=== PATIENT | male | born 1950 | race African-American/Black ===

== ENCOUNTER 2022-10-25 10:17 | Inpatient (IN) | payer BC, OTHER ==
[~2022-10-25] VITALS: Ht 172.7 cm; Wt 62.4 kg
[2022-10-25] VITALS (9 sets, daily range): BP systolic 122–130; BP diastolic 70–99
--- NOTE | 2022-10-25 07:30 | NUR ---
Bedside verbal endorsement given by day RN Sofya. Pt. awake in bed flat affect. Blank expression Malagasy speaking only. Bed in low position with 2 SR up. Pt. currently has insulin gtts going at 3.81 ml/hr. per drip sliding scale protocol. Rocephin gttts. not started by day nurse secondary to new order at shift end. Charge nurse will rectify. complete inital assessment rendered . See flowsheet for details. Pt. monitored for acute changes in clinical assessment, s/s hypoglycemia and unstable vital signs.
--- NOTE | 2022-10-25 10:20 | NUR ---
DR MARTINEZ AT BEDSIDE
[2022-10-25] MEDS ORDERED: IV NS 0.9% 1,000 ML BAG IV ONE (10:30)
[2022-10-25] MEDS ORDERED: INSU100I26 SQ (10:41)
[2022-10-25] MEDS ORDERED: SENN-261 PO (10:41)
[2022-10-25] MEDS ORDERED: INSU100I34 SQ (10:41)
[2022-10-25] MEDS ORDERED: CHOL200059 PO (10:41)
[2022-10-25] MEDS ORDERED: ATOR40TA PO (10:41)
[2022-10-25 11:08] LABS: BASOPHILS % (AUTO) 0.2 % (0.0-2.0); HEMATOCRIT 53 % (39-51); HEMOGLOBIN 16.7 g/dL (13.5-17.5); LYMPHOCYTES # (AUTO) 0.4 K/uL (0.8-4.8); LYMPHOCYTES % (AUTO) 3.2 % (20.0-44.0); MEAN CORPUSCULAR HGB CONC 32 g/dl (31.0-36.0); MEAN CORPUSCULAR VOLUME 92 fL (80-96); MONOCYTES # (AUTO) 0.7 K/uL (0.1-1.30); MONOCYTES % (AUTO) 5.1 % (2.0-12.0); NEUTROPHILS # (AUTO) 12.4 K/uL (1.8-8.9); NEUTROPHILS % (AUTO) 91.5 % (43.0-81.0); PLATELET COUNT (AUTO) 293 K/uL (150-450); RED BLOOD CELL COUNT(AUTO) 5.74 MIL/uL (4.5-6.0); WHITE BLOOD COUNT (AUTO) 13.5 K/uL (4.3-11.0)
--- NOTE | 2022-10-25 11:29 | NUR ---
covid swab taken
[2022-10-25 11:30] LABS: ALANINE AMINOTRANSFERASE 42 U/L (12-78); ALBUMIN 3.9 g/dL (3.4-5.0); ALKALINE PHOSPHATASE 130 U/L (46-116); ASPARTATE AMINOTRANSFERASE 11 U/L (15-37); BILIRUBIN,DIRECT 0.1 mg/dL (0.0-0.2); BILIRUBIN,TOTAL 0.7 mg/dL (0.2-1.0); CALCIUM, SERUM 10.7 mg/dL (8.5-10.1); CHLORIDE 101 mmol/L (98-107); CREATININE 1.6 mg/dL (0.6-1.3); POTASSIUM 4.9 mmol/L (3.5-5.1); SODIUM SERUM 140 mmol/L (136-145); TOTAL PROTEIN, SERUM 8.2 g/dL (6.4-8.2); UREA NITROGEN, BLOOD 31 mg/dL (7-18)
[2022-10-25 11:32] LABS: THYROID STIMULATING HORMONE 0.765 uIU/mL (0.358-3.74)
--- NOTE | 2022-10-25 11:35 | NUR ---
MOVE SHEET SUBMITTED.
[2022-10-25 11:46] LABS: ALCOHOL, BLOOD < 3 mg/dL (0-0); CARBON DIOXIDE 8 mmol/L (21-32); GLUCOSE 565 mg/dL (74-106)
--- NOTE | 2022-10-25 12:36 | NUR ---
ROOM [facility]
[2022-10-25] MEDS ORDERED: INSULIN REGULAR, HUMAN 100 UNITS in IV NS 0.9% 100 ML IV PRN ×2 (13:00)
[2022-10-25] MEDS ORDERED: IV NS 0.9% 1,000 ML IV PRN (13:00)
[2022-10-25] MEDS ORDERED: ACETAMINOPHEN 325 MG TABLET PO PRN (13:30)
[2022-10-25] MEDS ORDERED: ONDANSETRON HCL/PF 4 MG/2 ML VIAL IVP PRN (13:30)
[2022-10-25] MEDS ORDERED: SODIUM BICARBONATE SYR 50 MEQ/50 ML DISP.SYRIN IV ONE ×2 (13:30→16:00)
[2022-10-25] MEDS ORDERED: INSULIN REGULAR, HUMAN 100 UNIT in IV NS 0.9% 99 ML IV PRN ×2 (13:30)
[2022-10-25] MEDS ORDERED: MAGNESIUM HYDROXIDE 30 ML UDC PO PRN (13:30)
[2022-10-25] MEDS ORDERED: DEXTROSE 50%-WATER 50 ML DISP.SYRIN IV PRN (13:30)
[2022-10-25] MEDS ORDERED: ZOLPIDEM TARTRATE 5 MG TABLET PO PRN (13:30)
[2022-10-25] MEDS ORDERED: MAG HYDROX/AL HYDROX/SIMETH 30 ML UDC PO PRN (13:30)
[2022-10-25] MEDS ORDERED: Z GUARD REMEDY 4 OZ OINT TP PRN (13:30)
[2022-10-25 13:51] LABS: CALCIUM, SERUM 10.3 mg/dL (8.5-10.1); CARBON DIOXIDE 11 mmol/L (21-32); CHLORIDE 102 mmol/L (98-107); CREATININE 1.7 mg/dL (0.6-1.3); MAGNESIUM 2.8 mg/dL (1.8-2.4); PHOSPHORUS 5.1 mg/dL (2.5-4.9); SODIUM SERUM 141 mmol/L (136-145); UREA NITROGEN, BLOOD 31 mg/dL (7-18)
[2022-10-25] MEDS ORDERED: INS (REG) DRIP 100 U/100 ML NS IV PRN ×2 (14:00)
[2022-10-25] MEDS: BLOOD SUGAR DIAGNOSTIC 1 EACH STRIP IN SCH ×10 (14:00→23:07)
[2022-10-25] MEDS ORDERED: SODIUM BICARBONATE SYR 50 MEQ/50 ML DISP.SYRIN ONE (14:10)
[2022-10-25 14:24] LABS: GLUCOSE 521 mg/dL (74-106)
--- NOTE | 2022-10-25 15:05 | NUR ---
ROOM ASSIGNED. ICU 260. ADMITTING AWARE
[2022-10-25 15:08] LABS: CHLORIDE 107 mmol/L (98-107); CREATININE 1.7 mg/dL (0.6-1.3); POTASSIUM 5.1 mmol/L (3.5-5.1); SODIUM SERUM 144 mmol/L (136-145); UREA NITROGEN, BLOOD 31 mg/dL (7-18)
[2022-10-25 15:13] LABS: CARBON DIOXIDE 9 mmol/L (21-32); GLUCOSE 463 mg/dL (74-106)
[2022-10-25 15:17] LABS: MAGNESIUM 2.8 mg/dL (1.8-2.4); PHOSPHORUS 4.3 mg/dL (2.5-4.9)
[2022-10-25] MEDS: IV NS 0.9% 1,000 ML IV PRN ×2 (15:40→21:01)
--- NOTE | 2022-10-25 15:42 | NUR ---
REPORT GIVEN TO CHARGE NURSE BRIDGET PASCUAL FOR MEETA.
--- NOTE | 2022-10-25 16:00 | NUR ---
RN NOTES PATIENT ADMITTED FROM ER ON Dx OF DKA. PATIENT NO VERBAL, , BUT FOLLOW SIMPLE COMMANDS, PATIENT ROOM AIR, FIO2-98%, HR-102 ST. . SKIN ASSESSMENT DONE INTACT. PATIENT HAS LADD DRAINING LIGHT YELLOW OUTPUT. BS-348MG/DL INFUSING INSULIN DRIP 5.22U. ALSO INFUSING NS@125 ML/HR ON . NEW ORDERS TAKEN AND CARRIED OUT, CALL LIGHT WITHIN TO REACH. WILL FOLLOW UP.
--- NOTE | 2022-10-25 16:07 | NUR ---
moved to assigned inpatient room safely per acls protocol
[2022-10-25 17:33] LABS: MAGNESIUM 2.7 mg/dL (1.8-2.4); PHOSPHORUS 2.4 mg/dL (2.5-4.9)
[2022-10-25 18:33] LABS: CALCIUM, SERUM 10.1 mg/dL (8.5-10.1); CARBON DIOXIDE 15 mmol/L (21-32); CHLORIDE 111 mmol/L (98-107); CREATININE 1.5 mg/dL (0.6-1.3); GLUCOSE 269 mg/dL (74-106); POTASSIUM 4.2 mmol/L (3.5-5.1); SODIUM SERUM 147 mmol/L (136-145); UREA NITROGEN, BLOOD 29 mg/dL (7-18)
--- NOTE | 2022-10-25 19:00 | NUR ---
rn notes bs-254 mg/dl, infusing insulin 3.81u, and ns@125ml/hr, ua collected from cath port, notified lab to pickup. endorsed oncoming nurse follow plan of care.
[2022-10-25] MEDS ORDERED: CEFTRIAXONE 1 G VIAL ONE (19:33)
[2022-10-25] MEDS: CEFTRIAXONE 1 G in IV D5W 50 ML IV SCH (19:46)
[2022-10-25 20:08] LABS: COLOR,URINE YELLOW (YELLOW)
[2022-10-25 20:10] LABS: BILIRUBIN,URINE NEGATIVE (NEGATIVE); LEUKOCYTE ESTERASE ,URINE NEGATIVE (NEGATIVE); NITRITE, URINE NEGATIVE (NEGATIVE); PROTEIN,URINE 1+ mg/dl (NEGATIVE); UGLUCOSE 500 MG/DL mg/dL (NEGATIVE); UROBILINOGEN,URINE 0.2 EU/dL (0.2)
[2022-10-25 20:14] LABS: BACTERIA,URINE None seen /HPF (None Seen); RBC,URINE 51-80 /HPF (0-2); SQUAMOUS EPITHELIAL CELL,UR 0-2 /HPF (None Seen); WBC,URINE 0-2 /HPF (0-3)
[2022-10-25 20:15] LABS: URINE AMORPHOUS URATE Moderate /HPF (None Seen)
[2022-10-25] MEDS: SENNOSIDES 8.6 MG TABLET PO SCH (22:56)
[2022-10-25] MEDS: ATORVASTATIN 40 MG TABLET PO SCH (22:56)
[2022-10-25 23:05] LABS: CALCIUM, SERUM 9.8 mg/dL (8.5-10.1); CREATININE 1.2 mg/dL (0.6-1.3); POTASSIUM 3.7 mmol/L (3.5-5.1)
--- NOTE | 2022-10-25 23:43 | NUR ---
Results from 2229 BMP complete. Reveiwed by customs entry writer and monorail charger operator ED. Na+ at 150 meq. He however recommends calling onczoey DO after next set of results. Anion gap 18. Monitored for distress, Pt. appears comfortable.
[2022-10-26] VITALS (20 sets, daily range): BP systolic 107–149; BP diastolic 67–101
[2022-10-26 03:22] LABS: CALCIUM, SERUM 9.8 mg/dL (8.5-10.1); CREATININE 1.2 mg/dL (0.6-1.3); POTASSIUM 3.6 mmol/L (3.5-5.1)
[2022-10-26] MEDS ORDERED: DEXTROSE 50%-WATER 50 ML DISP.SYRIN IV PRN (04:30)
[2022-10-26 04:47] LABS: BASOPHILS # (AUTO) 0.1 K/uL (0.0-0.2); BASOPHILS % (AUTO) 0.5 % (0.0-2.0); EOSINOPHILS % (AUTO) 0.1 % (0.0-6.0); HEMATOCRIT 47 % (39-51); HEMOGLOBIN 15.1 g/dL (13.5-17.5); LYMPHOCYTES # (AUTO) 0.9 K/uL (0.8-4.8); LYMPHOCYTES % (AUTO) 6.5 % (20.0-44.0); MEAN CORPUSCULAR HGB CONC 32 g/dl (31.0-36.0); MEAN CORPUSCULAR VOLUME 91 fL (80-96); MONOCYTES # (AUTO) 1.4 K/uL (0.1-1.30); MONOCYTES % (AUTO) 10.6 % (2.0-12.0); NEUTROPHILS % (AUTO) 82.3 % (43.0-81.0); PLATELET COUNT (AUTO) 195 K/uL (150-450); RED BLOOD CELL COUNT(AUTO) 5.17 MIL/uL (4.5-6.0); WHITE BLOOD COUNT (AUTO) 13.3 K/uL (4.3-11.0)
[2022-10-26] MEDS: POTASSIUM CL. PREMIX PERIPHER. 50 ML IV SCH ×2 (04:54→05:44)
[2022-10-26 05:04] LABS: CALCIUM, SERUM 9.5 mg/dL (8.5-10.1); CREATININE 1.1 mg/dL (0.6-1.3); MAGNESIUM 2.4 mg/dL (1.8-2.4); PHOSPHORUS 1.5 mg/dL (2.5-4.9); POTASSIUM 3.6 mmol/L (3.5-5.1)
[2022-10-26] MEDS: IV D5/ 0.9% NACL 1,000 ML IV PRN ×3 (05:13→17:00)
[2022-10-26 06:43] LABS: CALCIUM, SERUM 9.6 mg/dL (8.5-10.1); CREATININE 1.3 mg/dL (0.6-1.3)
--- NOTE | 2022-10-26 07:28 | NUR ---
Pt. given replacement potassium 20meq. Insulin gtts. d/C'd. No change in mentation. Flat affect, non- verbal. Appears comfortable. VSS. Endorsed to oncoming AM RN
--- NOTE | 2022-10-26 08:00 | NUR ---
rn notes received patient awake,non verbal, room air, no acute respiratory distress. bs-360 mg/dl coverage given, also administered scheduled medication, assist turn and reposition q 2 hr. call light within to reach. infusing d5ns@200ml/hr intact on left hand. will follow up.
[2022-10-26] MEDS: BLOOD SUGAR DIAGNOSTIC 1 EACH STRIP IN SCH ×4 (08:45→21:06)
[2022-10-26] MEDS: INSULIN REGULAR, HUMAN 100 UNIT/ML 3 ML VIAL SQ PRN ×3 (08:50→16:24)
[2022-10-26] MEDS: CHOLECALCIFEROL 1,000 UNIT TABLET (VIT D3) PO SCH (08:55)
--- NOTE | 2022-10-26 09:40 | NUR ---
rn notes get call from lab patient has blood culture gram+ cocci, hospitalist notified.
[2022-10-26 10:54] LABS: CALCIUM, SERUM 9.4 mg/dL (8.5-10.1); CARBON DIOXIDE 18 mmol/L (21-32); CHLORIDE 116 mmol/L (98-107); CREATININE 1.4 mg/dL (0.6-1.3); POTASSIUM 4.3 mmol/L (3.5-5.1); SODIUM SERUM 149 mmol/L (136-145); UREA NITROGEN, BLOOD 22 mg/dL (7-18)
[2022-10-26 11:04] LABS: GLUCOSE 400 mg/dL (74-106)
--- NOTE | 2022-10-26 11:54 | NUR ---
rn notes bs-376 mg/dl, get order Lantus continue home medication, and [facility] 60g diabetic diet. order taken and carried out.
[2022-10-26] MEDS ORDERED: K PHOS NEUTRAL 250 MG TABLET PO ONE (12:30)
[2022-10-26 15:12] LABS: CALCIUM, SERUM 9.8 mg/dL (8.5-10.1); CREATININE 1.2 mg/dL (0.6-1.3); POTASSIUM 3.6 mmol/L (3.5-5.1)
[2022-10-26] MEDS: INSULIN GLARGINE, 100 UNIT/ML CARTRIDGE SQ SCH (16:22)
[2022-10-26] MEDS: CEFTRIAXONE 1 G in IV D5W 50 ML IV SCH (17:01)
--- NOTE | 2022-10-26 17:25 | NUR ---
rn notes changed patient diet to pureed because no teeth, patient going to transfer to the med/surge unit room 307 bed 1.
--- NOTE | 2022-10-26 18:00 | NUR ---
RN NOTES TRANSFERRED PATIENT TO THE MED/SURGE UNIT ROOM 307 BED 1 WITHIN STABLE CONDITION. NO ACUTE RESPIRATORY DISTRESS, ROOM AIR. BEDSIDE REPORT GIVEN RN FOLLOW PLAN OF CARE.
--- NOTE | 2022-10-26 18:33 | NUR ---
RN NOTE RECEIVED THIS 72 Y/O MALE PATIENT FROM ICU @1800 TRANSPORTED VIA BED, ACCOMPANIED BY SAMARA LUCIANO. PATIENT IS CURRENTLY ASLEEP, EASILY AROUSED. PATIENT NON-VERBAL. STABLE ON ROOM AIR, BREATHING EVEN AND UNLABORED. NOTED WITH IV ACCESS ON RIGHT WRIST #20G, INTACT AND PATENT RUNNING D5NS @200 ML/HR. WITH F/C INTACT, DRAINING CLEAR YELLOW URINE VIA GRAVITY. SKIN IS GENERALLY INTACT. VITAL SIGNS TAKEN FOLLOWS: BP 126/98, P 99, R 19, T 98.5, SPO2 95 %. NO S/SX OF PAIN OR DISCOMFORT AT THIS TIME. ROUTINE ADMISSION CARE PROVIDED. SAFETY MEASURE IN PLACE. BED IN LOW AND LOCKED POSITION SIDE RAILS UP X2, CALL LIGHT PLACED WITHIN EASY REACH. WILL CONTINUE TO MONITOR PATIENT.
--- NOTE | 2022-10-26 19:31 | NUR ---
RN OPENING NOTE PATIENT ASLEEP IN BED. A/OX0 (NON-VERBAL). NO S/S OF DISTRESS, BREATHING WITHOUT DIFFICULTY ON ROOM AIR. R-WRIST #20 INTACT AND PATENT W/ D5NS 200ML/HR. SAFETY MEASURES IN PLACE: BED LOCKED AND AT LOWEST POSITION, RAILS UP X2, CALL PENA WITHIN REACH. WILL CONTINUE TO MONITOR PATIENT.
[2022-10-26] MEDS: SENNOSIDES 8.6 MG TABLET PO SCH (21:06)
[2022-10-26] MEDS: ATORVASTATIN 40 MG TABLET PO SCH (21:06)
[2022-10-26] MEDS: *INSULIN REGULAR(HUMULIN R)HUM 100 UNIT/ML VIAL SQ PRN (21:09)
[2022-10-27 00:21] LABS: CALCIUM, SERUM 9.9 mg/dL (8.5-10.1); CREATININE 1.3 mg/dL (0.6-1.3); POTASSIUM 3.1 mmol/L (3.5-5.1)
--- NOTE | 2022-10-27 00:39 | NUR ---
RN NOTE LAB CALLED THIS RN TO NOTIFY OF NEW SERUM SODIUM LEVEL OF 158. ON-CALL, NICOLE, WAS CONTACTED FOR ANY NEW ORDERS. NEW ORDER GIVEN TO SWITCH D5-1/2NS @200ML/HR TO 1/2NS @100ML/HR. PATIENT O/W STABLE; WILL CONTINUE TO MONITOR.
[2022-10-27] MEDS: IV 1/2NS 1000 ML 1,000 ML IV PRN ×2 (01:49→14:44)
[2022-10-27 03:01] LABS: CALCIUM, SERUM 9.7 mg/dL (8.5-10.1); CREATININE 1.1 mg/dL (0.6-1.3); POTASSIUM 3.1 mmol/L (3.5-5.1)
[2022-10-27 06:09] LABS: CALCIUM, SERUM 9.5 mg/dL (8.5-10.1); CREATININE 0.9 mg/dL (0.6-1.3); POTASSIUM 3.6 mmol/L (3.5-5.1)
--- NOTE | 2022-10-27 06:09 | NUR ---
RN CLOSING NOTE PATIENT ASLEEP IN BED. A/OX1 (NAME). NO S/S OF DISTRESS, BREATHING WITHOUT DIFFICULTY ON ROOM AIR. R-WRIST #20 INTACT AND PATENT W/ 1/2NS 100ML/HR. SAFETY MEASURES IN PLACE: BED LOCKED AND AT LOWEST POSITION, RAILS UP X2, CALL PENA WITHIN REACH. WILL ENDORSE TO NEXT SHIFT FOR MEETA.
[2022-10-27 06:35] LABS: MAGNESIUM 2.5 mg/dL (1.8-2.4); PHOSPHORUS 2.1 mg/dL (2.5-4.9)
[2022-10-27] MEDS: BLOOD SUGAR DIAGNOSTIC 1 EACH STRIP IN SCH ×4 (06:39→21:19)
[2022-10-27] MEDS: INSULIN REGULAR, HUMAN 100 UNIT/ML 3 ML VIAL SQ PRN ×3 (06:39→21:23)
--- NOTE | 2022-10-27 07:10 | NUR ---
RN OPENING NOTE PATIENT INTERMITTENTLY ASLEEP IN BED, A/OX0, NON-VERBAL BUT OPENED UP EYES WHEN NAME WAS CALLED. NO S/S OF DISTRESS, BREATHING WITHOUT DIFFICULTY ON ROOM AIR. R-WRIST #20 INTACT AND PATENT W/ /2 NS 100ML/HR. SAFETY MEASURES IN PLACE: BED LOCKED AND AT LOWEST POSITION, RAILS UP X2, CALL PENA WITHIN REACH. WILL CONTINUE TO MONITOR PATIENT.
[2022-10-27 08:00] VITALS: BP 143/80
[2022-10-27] MEDS: CHOLECALCIFEROL 1,000 UNIT TABLET (VIT D3) PO SCH (08:32)
[2022-10-27] MEDS ORDERED: K PHOS NEUTRAL 250 MG TABLET PO ONE (09:00)
[2022-10-27 09:08] LABS: BASOPHILS # (AUTO) 0.1 K/uL (0.0-0.2); BASOPHILS % (AUTO) 0.5 % (0.0-2.0); EOSINOPHILS % (AUTO) 0.1 % (0.0-6.0); HEMATOCRIT 47 % (39-51); LYMPHOCYTES # (AUTO) 1.3 K/uL (0.8-4.8); LYMPHOCYTES % (AUTO) 10.2 % (20.0-44.0); MEAN CORPUSCULAR HGB CONC 32 g/dl (31.0-36.0); MEAN CORPUSCULAR VOLUME 91 fL (80-96); MONOCYTES # (AUTO) 1.4 K/uL (0.1-1.30); MONOCYTES % (AUTO) 10.7 % (2.0-12.0); NEUTROPHILS # (AUTO) 10.3 K/uL (1.8-8.9); NEUTROPHILS % (AUTO) 78.5 % (43.0-81.0); PLATELET COUNT (AUTO) 155 K/uL (150-450); RED BLOOD CELL COUNT(AUTO) 5.13 MIL/uL (4.5-6.0); WHITE BLOOD COUNT (AUTO) 13.1 K/uL (4.3-11.0)
[2022-10-27] MEDS: INSULIN GLARGINE, 100 UNIT/ML CARTRIDGE SQ SCH ×2 (09:42→16:44)
[2022-10-27] MEDS ORDERED: POTASSIUM CHLORIDE 20 MEQ TAB.PRT.SR PO SCH (10:00)
[2022-10-27 11:46] LABS: CALCIUM, SERUM 9.5 mg/dL (8.5-10.1); CREATININE 0.9 mg/dL (0.6-1.3); POTASSIUM 3.5 mmol/L (3.5-5.1)
[2022-10-27 15:17] LABS: CALCIUM, SERUM 9.5 mg/dL (8.5-10.1); CREATININE 0.9 mg/dL (0.6-1.3); POTASSIUM 3.7 mmol/L (3.5-5.1)
[2022-10-27 16:00] VITALS: BP 113/80
[2022-10-27] MEDS: CEFTRIAXONE 1 G in IV D5W 50 ML IV SCH (17:22)
[2022-10-27 19:00] LABS: CALCIUM, SERUM 9.7 mg/dL (8.5-10.1); POTASSIUM 3.5 mmol/L (3.5-5.1)
--- NOTE | 2022-10-27 19:11 | NUR ---
RN CLOSING NOTE PATIENT ASLEEP IN BED. A/OX1. NO S/S OF DISTRESS, BREATHING WITHOUT DIFFICULTY ON ROOM AIR. R-WRIST #20 INTACT AND PATENT W/ 1/2NS 100ML/HR. SAFETY MEASURES IN PLACE: BED LOCKED AND AT LOWEST POSITION, RAILS UP X2, CALL PENA WITHIN REACH. WILL ENDORSE TO OBSTETRIC ANAESTHETIST RN FOR MEETA.
--- NOTE | 2022-10-27 19:48 | NUR ---
RN OPENING NOTE PATIENT IS ASLEEP IN BED. A/OX1 (NAME). NO S/S OF DISTRESS, BREATHING WITHOUT DIFFICULTY ON ROOM AIR. R-WRIST INTACT AND PATENT W/ 1/2NS 100ML/HR. SAFETY MEASURES IN PLACE: BED LOCKED AND AT LOWEST POSITION, RAILS UP X2, CALL PENA WITHIN REACH. WILL CONTINUE TO MONITOR PATIENT.
[2022-10-27] MEDS: VANCOMYCIN 1 GM in IV D5W 250 ML IV SCH (20:07)
[2022-10-27] MEDS: SENNOSIDES 8.6 MG TABLET PO SCH (21:19)
[2022-10-27] MEDS: ATORVASTATIN 40 MG TABLET PO SCH (21:19)
[2022-10-28] MEDS: IV 1/2NS 1000 ML 1,000 ML IV PRN (04:11)
--- NOTE | 2022-10-28 06:12 | NUR ---
RN CLOSING NOTE PATIENT ASLEEP IN BED. A/OX1 (NAME). NO S/S OF DISTRESS, BREATHING W/O DIFFICULTY ON ROOM AIR. R-WRIST #20 W/ 1/2NS 100ML/HR. SAFETY MEASURES IN PLACE: BED LOCKED AND IN POSITION, CALL PENA WITHIN REACH. WILL ENDORSE TO NEXT SHIFT FOR MEETA.
[2022-10-28] MEDS: BLOOD SUGAR DIAGNOSTIC 1 EACH STRIP IN SCH ×4 (06:39→21:26)
[2022-10-28] MEDS: INSULIN REGULAR, HUMAN 100 UNIT/ML 3 ML VIAL SQ PRN ×3 (06:39→16:59)
--- NOTE | 2022-10-28 07:49 | NUR ---
RN OPENING NOTE RECEIVED PATIENT ASLEEP IN BED, A/OX1, RESPONDS TO TOUCH AND NAME, NON-VERBAL BUT OPENED UP EYES WHEN NAME WAS CALLED. ON RA WITH NO S/S OF SOB OR DISTRESS, BREATHING EVEN AND UNLABORED. IV ACCESS @ R-WRIST #20 INTACT AND PATENT W/ /2 NS 100ML/HR. SAFETY MEASURES IN PLACE: BED LOCKED AND AT LOWEST POSITION, RAILS UP X2, CALL LIGHT WITHIN REACH, WILL CONTINUE WITH PLAN OF CARE DURING SHIFT.
[2022-10-28 08:00] VITALS: BP 140/80
[2022-10-28] MEDS: VANCOMYCIN 1 GM in IV D5W 250 ML IV SCH (08:11)
[2022-10-28] MEDS: CHOLECALCIFEROL 1,000 UNIT TABLET (VIT D3) PO SCH (08:11)
[2022-10-28] MEDS: INSULIN GLARGINE, 100 UNIT/ML CARTRIDGE SQ SCH ×2 (08:17→17:10)
--- NOTE | 2022-10-28 08:59 | NUR ---
MS RN NOTES: PT IS AWAKE AND VERBALLY RESPONSIVE, ASKED FOR COLD WATER, ATE BREAKFAST WITH MINIMAL ASSIST; PHYSICAL THERAPY WILL SEE PT AFTER BREAKFAST.
[2022-10-28 10:03] LABS: BASOPHILS % (AUTO) 0.4 % (0.0-2.0); HEMATOCRIT 49 % (39-51); HEMOGLOBIN 15.3 g/dL (13.5-17.5); LYMPHOCYTES # (AUTO) 1.4 K/uL (0.8-4.8); LYMPHOCYTES % (AUTO) 12.9 % (20.0-44.0); MEAN CORPUSCULAR HGB CONC 31 g/dl (31.0-36.0); MEAN CORPUSCULAR VOLUME 93 fL (80-96); MONOCYTES % (AUTO) 9.2 % (2.0-12.0); NEUTROPHILS # (AUTO) 8.1 K/uL (1.8-8.9); NEUTROPHILS % (AUTO) 76.5 % (43.0-81.0); PLATELET COUNT (AUTO) 102 K/uL (150-450); RED BLOOD CELL COUNT(AUTO) 5.24 MIL/uL (4.5-6.0); WHITE BLOOD COUNT (AUTO) 10.6 K/uL (4.3-11.0)
[2022-10-28 10:14] LABS: CALCIUM, SERUM 9.5 mg/dL (8.5-10.1); MAGNESIUM 2.2 mg/dL (1.8-2.4); PHOSPHORUS 3.4 mg/dL (2.5-4.9); POTASSIUM 3.4 mmol/L (3.5-5.1)
[2022-10-28 16:00] VITALS: BP 120/61
[2022-10-28] MEDS: CEFTRIAXONE 1 G in IV D5W 50 ML IV SCH (17:37)
[2022-10-28] MEDS: IV NS 0.9% 1,000 ML IV PRN (18:15)
--- NOTE | 2022-10-28 19:12 | NUR ---
MS RN CLOSING NOTES: PATIENT ASLEEP IN BED, A/OX1, ALERT TO NAME/PERSON. PT IS MORE RESPONSIVE TODAY, WAS ABLE TO ANSWER SIMPLE YES OR NO QUESTIONS AND VERBALIZE NEEDS LIKE ASKING FOR WATER. PT ON RA WITH NO S/S OF SOB OR DISTRESS, BREATHING EVEN AND UNLABORED. IV ACCESS @ R-WRIST #20 SL, AND L HAND #20 RUNNING NS @ 125ML/HR/ ALL NEEDS MET, KEPT PT CLEAN, DRY AND COMFORTABLE. SAFETY MEASURES IN PLACE: BED LOCKED AT LOWEST POSITION, RAILS UP X2, CALL LIGHT WITHIN REACH, WILL ENDORSE TO PM SHIFT.
--- NOTE | 2022-10-28 19:41 | NUR ---
RN OPENING NOTE PATIENT AWAKE IN BED W/ SPOUSE AT BEDSIDE. A/OX2 (NAME AND PLACE). NO S/S OF DISTRESS, BREATHING WITHOUT DIFFICULTY ON ROOM AIR. L-HAND #20 INTACT AND PATENT W/ NS 125ML/HR. SAFETY MEASURES IN PLACE: BED LOCKED AND AT LOWEST POSITION, RAILS UP X2, CALL PENA WITHIN REACH. WILL CONTINUE TO MONITOR PATIENT.
[2022-10-28 21:11] VITALS: BP 123/72
[2022-10-28] MEDS: *INSULIN REGULAR(HUMULIN R)HUM 100 UNIT/ML VIAL SQ PRN (21:26)
[2022-10-28] MEDS: SENNOSIDES 8.6 MG TABLET PO SCH (21:26)
[2022-10-28] MEDS: ATORVASTATIN 40 MG TABLET PO SCH (21:26)
--- NOTE | 2022-10-29 00:44 | NUR ---
RN NOTE PATIENT ENDORSED TO NIGHT RN, ELIOT. PATIENT STABLE O/W.
[2022-10-29] MEDS: IV 1/2NS 1000 ML 1,000 ML IV PRN ×2 (04:10→15:19)
[2022-10-29] MEDS: BLOOD SUGAR DIAGNOSTIC 1 EACH STRIP IN SCH ×4 (06:47→21:17)
[2022-10-29] MEDS: INSULIN REGULAR, HUMAN 100 UNIT/ML 3 ML VIAL SQ PRN ×3 (06:48→17:14)
--- NOTE | 2022-10-29 06:54 | NUR ---
MS RN CLOSING NOTES - PATIENT LAYING IN BED AWAKE, ABLE TO VERBALIZE NEEDS. A/O X2, PASSIVE AND FORGETFUL. NO ACUTE EVENTS THROUGHOUT THE NIGHT. AFEBRILE. DENIES PAIN AT THIS TIME. HAS RIGHT HAND IV ACCESS #20G WITH 1/2 NS RUNNING AT 100 ML/HR. INTACT, PATENT AND FLUSHING. LADD CATHETER DRAINING CLEAR YELLOW URINE TO BAG BY GRAVITY. ALL DUE MEDS GIVEN AND NEEDS ATTENDED. SAFETY PRECAUTIONS MAINTAINED. WILL ENDORSE TO NEXT SHIFT FOR MEETA.
--- NOTE | 2022-10-29 07:25 | NUR ---
ms rn received on bed, awake,alert,oriented x2-3, not in any form of distress, respirations even and unlabored,no sob noted.lungs are diminished,abdomen soft,positive bowel sounds,denies pain at thi s time,patient for u/s guided, thoracentesis, all needs attended.
[2022-10-29 07:56] LABS: BASOPHILS # (AUTO) 0.1 K/uL (0.0-0.2); BASOPHILS % (AUTO) 0.6 % (0.0-2.0); EOSINOPHILS % (AUTO) 2.9 % (0.0-6.0); HEMATOCRIT 42 % (39-51); HEMOGLOBIN 13.6 g/dL (13.5-17.5); LYMPHOCYTES # (AUTO) 1.9 K/uL (0.8-4.8); LYMPHOCYTES % (AUTO) 22.2 % (20.0-44.0); MEAN CORPUSCULAR HGB CONC 32 g/dl (31.0-36.0); MEAN CORPUSCULAR VOLUME 92 fL (80-96); MONOCYTES # (AUTO) 0.7 K/uL (0.1-1.30); MONOCYTES % (AUTO) 8.6 % (2.0-12.0); NEUTROPHILS # (AUTO) 5.6 K/uL (1.8-8.9); NEUTROPHILS % (AUTO) 65.7 % (43.0-81.0); PLATELET COUNT (AUTO) 83 K/uL (150-450); WHITE BLOOD COUNT (AUTO) 8.5 K/uL (4.3-11.0)
[2022-10-29 08:00] VITALS: BP 120/70
--- NOTE | 2022-10-29 08:20 | NUR ---
ms byrnes breakfast served,due meds given,tolerated well.
[2022-10-29] MEDS: INSULIN GLARGINE, 100 UNIT/ML CARTRIDGE SQ SCH ×2 (08:35→17:19)
[2022-10-29] MEDS: CHOLECALCIFEROL 1,000 UNIT TABLET (VIT D3) PO SCH (08:36)
[2022-10-29 10:18] LABS: CALCIUM, SERUM 8.4 mg/dL (8.5-10.1); CARBON DIOXIDE 27 mmol/L (21-32); CHLORIDE 103 mmol/L (98-107); CREATININE 0.9 mg/dL (0.6-1.3); GLUCOSE 227 mg/dL (74-106); MAGNESIUM 1.7 mg/dL (1.8-2.4); PHOSPHORUS 2.8 mg/dL (2.5-4.9); SODIUM SERUM 136 mmol/L (136-145); UREA NITROGEN, BLOOD 12 mg/dL (7-18)
--- NOTE | 2022-10-29 11:00 | NUR ---
ms rn was seen by ange mireles/ orders made and carried out.
--- NOTE | 2022-10-29 12:00 | NUR ---
ms soniya foleycatheter removed, will wait for output.
[2022-10-29 15:28] LABS: EOSINOPHILS % (MANUAL) 1 % (0-4); LYMPHOCYTES % (MANUAL) 28 % (16-48); MONOCYTES % (MANUAL) 6 % (0-11.0); NEUTROPHILS % (MANUAL) 65 (42-76)
[2022-10-29 16:00] VITALS: BP 129/78
[2022-10-29] MEDS: CEFTRIAXONE 1 G in IV D5W 50 ML IV SCH (17:17)
--- NOTE | 2022-10-29 18:00 | NUR ---
ms rn on bed, had urinated already w/ minimum amount,all needs attended.
[2022-10-29] MEDS: POTASSIUM CHLORIDE 20 MEQ POWDER PACKET PO SCH ×3 (18:22→21:41)
[2022-10-29] MEDS: Magnesium 1GM/D5W 100ML PREMIX 100 ML IV SCH ×2 (18:22→20:06)
[2022-10-29 20:00] VITALS: BP 136/70
[2022-10-29] MEDS: SENNOSIDES 8.6 MG TABLET PO SCH (21:37)
[2022-10-29] MEDS: ATORVASTATIN 40 MG TABLET PO SCH (21:37)
[2022-10-29] MEDS ORDERED: POTASSIUM CHLORIDE 20 MEQ POWDER PACKET ONE (21:41)
[2022-10-29] MEDS: *INSULIN REGULAR(HUMULIN R)HUM 100 UNIT/ML VIAL SQ PRN (21:57)
--- NOTE | 2022-10-29 21:58 | NUR ---
ACCU CHECK Bld glucose 230mg/dl. Given insulin per SS. Co signed by Chang Zimmer.
[2022-10-30] MEDS: BLOOD SUGAR DIAGNOSTIC 1 EACH STRIP IN SCH ×3 (06:29→17:38)
[2022-10-30] MEDS: IV 1/2NS 1000 ML 1,000 ML IV PRN (06:30)
[2022-10-30] MEDS: INSULIN REGULAR, HUMAN 100 UNIT/ML 3 ML VIAL SQ PRN ×3 (06:30→17:22)
--- NOTE | 2022-10-30 06:36 | NUR ---
END OF SHIFT REPORT Patient in bed, Alert Oriented x1-2 Forgetful. Oxygen sat in high 90's, observed no shortness of breath with exertion. Right hand IV peripheral line intact, IVF infusing. Blood glucose ranges 82-230. On insulin regimen. Good appetite. Voided urine, no s/s of urinary retention bladder scan showed zero vol. Turned and repositioned. Patient to be dc to [facility]. Will endorse to oncoming RN.
--- NOTE | 2022-10-30 07:10 | NUR ---
ms rn received on bed, sleeping oriented x1,not in any form of distress, room air w/ adequate saturation, denies pain at this time, will monitor patient.
[2022-10-30 08:00] VITALS: BP 119/70
[2022-10-30] MEDS: CHOLECALCIFEROL 1,000 UNIT TABLET (VIT D3) PO SCH (08:32)
--- NOTE | 2022-10-30 09:00 | NUR ---
ms byrnes breakfast served,due meds given,tolerated well.
[2022-10-30] MEDS: INSULIN GLARGINE, 100 UNIT/ML CARTRIDGE SQ SCH ×2 (09:08→17:23)
[2022-10-30 16:00] VITALS: BP 133/71
--- NOTE | 2022-10-30 16:36 | NUR ---
ms rn on bed, no distress noted, patieint will be discharge to [facility] this pm.
--- NOTE | 2022-10-30 17:41 | NUR ---
ms rn patient ate dinner ready to be transferred to [facility], will give report to rn.
--- NOTE | 2022-10-30 17:50 | NUR ---
MS RN TRANSFERRED TO [facility],REPORT GIVEN TO GONSALO PASCUAL, ALL NEEDS ATTENDED.
== END 2022-10-30 18:32 | DRG 637 ==
LOC: ER 10:22 → TRANSITION 14:28 → ICU 15:05 → MED 10-26 18:09
PROVIDERS: ADMIT Nurse Practitioner Acute Care; ATTEND Nurse Practitioner Family
DX: E11.10 Type 2 diabetes mellitus with ketoacidosis without coma (principal); G92.8 Other toxic encephalopathy; N17.0 Acute kidney failure with tubular necrosis; E87.0 Hyperosmolality and hypernatremia; R65.10 Systemic inflammatory response syndrome (SIRS) of non-infectious origin without acute organ dysfunction; Z20.822 Contact with and (suspected) exposure to COVID-19; F01.50 Vascular dementia, unspecified severity, without behavioral disturbance, psychotic disturbance, mood disturbance, and anxiety; I10 Essential (primary) hypertension; Z79.4 Long term (current) use of insulin; Z79.899 Other long term (current) drug therapy; E78.5 Hyperlipidemia, unspecified; D72.829 Elevated white blood cell count, unspecified; E11.65 Type 2 diabetes mellitus with hyperglycemia
CPT/HCPCS: 36415; 70450-TC; 71045-TC; 80048-TC; 80076-TC; 80202-TC; 81001; 82962-TC; 83605-TC; 83735-TC; 84100-TC; 84443-TC; 84484-TC; 85025-TC; 85730-TC; 87040-TC; 87081-TC; 97110-TC; 97112-TC; 97116-TC; 97530-TC; C9803; G0378; G0480; J0696; J1815; J2405; J3370; J3475; J3480; J3490; J7030; J7042; J7060